=== PATIENT | female | born 1990 | race Two or more races ===

== ENCOUNTER 2023-06-06 10:14 | Outpatient (CLI) | payer OTHER ==
[~2023-06-06 10:14] MED LIST: PEPCID40 MG PO; PROTONIX40 MG PO
== END 2023-06-06 10:19 | disposition home or self-care (01) ==
LOC: RAD 10:14
PROVIDERS: ATTEND Internal Medicine Pulmonary Disease
DX: R05.3 Chronic cough (principal)